=== PATIENT | male | born 1955 | race Caucasian/White ===

== ENCOUNTER 2022-04-05 11:37 | Emergency (ER) | payer MEDICARE, OTHER ==
[~2022-04-05] VITALS: Ht 175.3 cm; Wt 79.4 kg
[~2022-04-05 11:37] MED LIST: AMLO-212 PO; ASPI81TA31 PO; NAPR-1164 PO
--- NOTE | 2022-04-05 12:05 | NUR ---
PT IS IN ROOM #1B. DR AYERS EVALUATED THE PT.
[2022-04-05 12:19] LABS: HEMATOCRIT 37.5 % (36.7-47.1); MEAN CORPUSCULAR HEMOGLOBIN 32.1 uug (23.8-33.4); MEAN CORPUSCULAR VOLUME 93.1 fL (73.0-96.2); PLATELET COUNT (AUTO) 244 K/uL (152-348)
[2022-04-05 12:24] LABS: CARBON DIOXIDE 28 mmol/L (21-32); CHLORIDE 105 mmol/L (98-107); GLUCOSE 98 mg/dL (74-106); POTASSIUM 3.9 mmol/L (3.5-5.1); UREA NITROGEN, BLOOD 16 mg/dL (7-18)
[2022-04-05 12:36] LABS: ALANINE AMINOTRANSFERASE 23 U/L (16-63); ALKALINE PHOSPHATASE 65 U/L (50-136); ASPARTATE AMINOTRANSFERASE 8 U/L (15-37); BILIRUBIN,DIRECT 0.1 mg/dL (0.0-0.2); BILIRUBIN,TOTAL 0.3 mg/dL (0.2-1.0)
[2022-04-05] MEDS ORDERED: ASPIRIN 81 MG TAB.CHEW ONE (14:15)
[2022-04-05] MEDS ORDERED: ASPIRIN 81 MG TAB.CHEW PO ONE (14:15)
--- NOTE | 2022-04-05 14:49 | NUR ---
PT DECIDED TO LEAVE HOSPITAL AMA. DR AYERS EXPLAINED ALL RISKS OF LEAVING HOSPITAL AMA TO THE PT. PT WERBALIZED FULL UNDERSTANDING. PT SIGNED AMA FORM AND LEFT HOSPITAL AMA. GAIT IS STABLE. NO S/S OF DISTRSS. NO SOB, NO N/V, PT DENIES PAIN, NO DIZZINESS.
[2022-04-05 14:53] VITALS: BP 138/79
== END 2022-04-05 14:54 | disposition left against medical advice (07) ==
LOC: ER 11:37
DX: R07.9 Chest pain, unspecified (principal); I10 Essential (primary) hypertension; E78.5 Hyperlipidemia, unspecified; Z79.82 Long term (current) use of aspirin; Z79.899 Other long term (current) drug therapy; M79.2 Neuralgia and neuritis, unspecified; Z53.29 Procedure and treatment not carried out because of patient's decision for other reasons
CPT/HCPCS: 36415; 71045; 84484; 85025; 93005; A4663